=== PATIENT | male | born 1965 | race Caucasian/White ===

== ENCOUNTER 2019-10-17 07:45 | Day surgery (SDC) | payer BC ==
[~2019-10-17] VITALS: Ht 182.9 cm; Wt 83.5 kg
[2019-10-17] VITALS (7 sets, daily range): BP systolic 114–134; BP diastolic 69–84; PULSE 79–88; TEMP 97.5–97.9
[2019-10-17] MEDS ORDERED: PRINIVIL10 MG PO (08:10)
[2019-10-17] MEDS ORDERED: PEPCID 20MG TAB20 MG PO (08:11)
[2019-10-17] MEDS ORDERED: CLARITIN 1010 MG/TAB PO (08:11)
[2019-10-17] MEDS ORDERED: FLONASEALLERGY NS (08:12)
--- NOTE | 2019-10-17 11:30 | NUR ---
Patient arrives to [facility] via cart, accompanied by NEUROLOGY SPECIALIST Marlin. He is sitting up in bed, alert and oriented. He denies any pain. He has mild nausea that has been treated with Phenergan. He states his throat is a little sore and would like some water - he receives water and crackers to try. Monitoring is applied - VSS and WNL on room air. His S.O. is brought to the bedside. Call light in reach.
--- NOTE | 2019-10-17 11:45 | NUR ---
Patient is resting in room. Mild nausea remains. Denies pain. Incisions remain clean, dry, glue intact.
--- NOTE | 2019-10-17 12:00 | NUR ---
Patient states that nausea is improved. He denies pain, outside of "soreness" where the surgical sites are.
--- NOTE | 2019-10-17 13:00 | NUR ---
Patient states that his nausea is gone and his soreness is improved. He denies anything more to eat than water and crackers. He does not feel the need to void (he voided prior to OR).
--- NOTE | 2019-10-17 13:40 | NUR ---
Patient has met discharge criteria. Discharge instructions discussed, denies any questions, and verbalizes understanding. PIV removed with catheter intact and hemostasis achieved. Escorted to the exit via wheelchair. Discharged to home with ride in private vehicle at 1340.
== END 2019-10-17 13:40 | disposition home or self-care (01) ==
LOC: SDCO 07:45
DX: K40.91 Unilateral inguinal hernia, without obstruction or gangrene, recurrent (principal); I10 Essential (primary) hypertension; Z79.899 Other long term (current) drug therapy; I34.1 Nonrheumatic mitral (valve) prolapse; K21.9 Gastro-esophageal reflux disease without esophagitis; E78.00 Pure hypercholesterolemia, unspecified; R13.14 Dysphagia, pharyngoesophageal phase; R42 Dizziness and giddiness; G89.29 Other chronic pain
CPT/HCPCS: C1781; J0690; J1100; J1885; J2405; J2550; J2704; J3010; J7120

== ENCOUNTER → 2020-04-16 | Outpatient (CLI) | payer BC ==
[~2020-04-16] MED LIST: CLARITIN 1010 MG/TAB PO; FLONASEALLERGY NS; PEPCID 20MG TAB20 MG PO; PRINIVIL10 MG PO
== END ==
LOC: COL.LAB 10:10
DX: Z20.828 Contact with and (suspected) exposure to other viral communicable diseases (principal)

== ENCOUNTER 2020-08-18 15:17 | Outpatient (RCR) | payer BC | END 2020-08-23 | disposition home or self-care (01) | LOC: COL.CR | DX: Z48.812 Encounter for surgical aftercare following surgery on the circulatory system (principal); Z98.890 Other specified postprocedural states; I34.0 Nonrheumatic mitral (valve) insufficiency ==

== ENCOUNTER → 2020-08-23 | Outpatient (RCR) | payer SELFPAY | LOC: COL.CR | DX: Z20.828 Contact with and (suspected) exposure to other viral communicable diseases (principal) ==

== ENCOUNTER 2020-11-17 17:02 | Outpatient (RCR) | payer SELFPAY | END 2020-11-21 | disposition home or self-care (01) | LOC: COL.CR | DX: Z02.89 Encounter for other administrative examinations (principal) ==

== ENCOUNTER 2021-02-18 17:14 | Outpatient (RCR) | payer SELFPAY | END 2021-02-20 | disposition home or self-care (01) | LOC: COL.CR | DX: Z02.89 Encounter for other administrative examinations (principal) ==

== ENCOUNTER 2021-12-16 10:17 | Outpatient (RCR) | payer SELFPAY | END 2021-12-17 | LOC: COL.CR | DX: Z29.8 Encounter for other specified prophylactic measures (principal) ==

== ENCOUNTER 2022-01-13 12:07 | Outpatient (RCR) | payer SELFPAY | END 2022-01-17 | LOC: COL.CR | DX: Z29.8 Encounter for other specified prophylactic measures (principal) ==

== ENCOUNTER 2022-02-15 14:46 | Outpatient (RCR) | payer SELFPAY | END 2022-02-16 | LOC: COL.CR | DX: Z29.8 Encounter for other specified prophylactic measures (principal) ==

== ENCOUNTER 2022-03-17 13:04 | Outpatient (RCR) | payer SELFPAY | END 2022-03-19 | LOC: COL.CR | DX: Z29.8 Encounter for other specified prophylactic measures (principal) ==

== ENCOUNTER → 2022-04-19 | Outpatient (RCR) | payer SELFPAY | LOC: COL.CR | DX: Z29.8 Encounter for other specified prophylactic measures (principal) ==

== ENCOUNTER 2024-05-04 01:01 | Emergency (ER) | payer BC ==
[~2024-05-04] VITALS: Ht 182.9 cm; Wt 84.1 kg
[2024-05-04] MEDS ORDERED: Ondansetron 4 MG/2 ML VIAL IV ONE (01:30)
[2024-05-04] MEDS ORDERED: NS 1,000 ML IV ONE (01:30)
[2024-05-04] MEDS ORDERED: Ketorolac 30 MG/ML VIAL IV ONE (01:30)
[2024-05-04 01:42] LABS: BASO # 0.1 K/mm3 (0.0-0.2); BASO % 0.6 % (0.0-2.0); EOS # 0.1 K/mm3 (0.0-0.7); EOS % 1.3 % (0.0-4.0); GRAN # 4.5 K/mm3 (1.4-6.5); GRAN % 50.8 % (42.2-75.2); HEMATOCRIT 44.4 % (42.0-52.0); HEMOGLOBIN 15.3 g/dl (13.5-18.0); LYMPH # 3.3 K/mm3 (1.2-3.4); LYMPH % 37.4 % (20.0-51.0); MEAN CELL VOLUME 93 fl (80.0-100.0); MEAN CORPUSCULAR HEMOGLOBIN 32 pg (27-31); MEAN CORPUSCULAR HGB CONC 35 g/dl (33.0-37.0); MEAN PLATELET VOLUME 9.9 fl (7.4-10.4); MONO # 0.9 K/mm3 (0.1-0.6); MONO % 9.8 % (1.7-9.3); PLATELET COUNT 224 K/mm3 (130-400); RED BLOOD COUNT 4.77 M/mm3 (4.20-5.60); REDCELL DISTRIBUTION WIDTH-CV 11.8 % (11.5-14.5)
[2024-05-04 01:56] LABS: ALBUMIN 4.3 g/dL (3.5-5.0); BILIRUBIN,TOTAL 1.1 mg/dL (0.2-1.2); CALCIUM 9.7 mg/dL (8.4-10.2); CREATININE, serum 1.32 mg/dL (0.72-1.25); POTASSIUM 3.6 mEq/L (3.5-4.5); TOTAL PROTEIN 7.4 g/dl (6.2-8.1)
[2024-05-04] MEDS ORDERED: Iohexol 300 - 100 ML VIAL IV ONE (02:08)
[2024-05-04] MEDS ORDERED: NS 50 ML IV SCH (02:09)
[2024-05-04 03:47] LABS: URINE APPEARANCE CLEAR (CLEAR/HAZY); URINE BLOOD 3+ (NEGATIVE); URINE COLOR YELLOW (YELLOW); URINE GLUCOSE NEGATIVE (NEGATIVE); URINE KETONE NEGATIVE (NEGATIVE); URINE NITRATE NEGATIVE (NEGATIVE); URINE PROTEIN(semi-quant) TRACE (NEGATIVE)
[2024-05-04 03:48] LABS: COLLECTION METHOD CLEAN CATCH
[2024-05-04] MEDS ORDERED: TORADOL 10MG TA10 MG PO (04:39)
[2024-05-04] MEDS ORDERED: ZOFRAN ODT4 MG PO (04:39)
[2024-05-04] MEDS ORDERED: FLOMAX 0.40.4 MG/CAP PO (04:39)
[2024-05-04 05:00] VITALS: BP 101/75; PULSE 53; TEMP 97.8
== END 2024-05-04 05:10 | disposition home or self-care (01) ==
LOC: COL.ER 01:01
PROVIDERS: Nurse Practitioner Primary Care
DX: N20.0 Calculus of kidney (principal)
CPT/HCPCS: J1885; J2405; J7030; Q9967